=== PATIENT | male | born 1970 | race Caucasian/White ===

== ENCOUNTER 2023-02-12 11:58 | Emergency (ER) | payer MEDICAID ==
[~2023-02-12] VITALS: Ht 170.2 cm; Wt 95.5 kg
[2023-02-12] MEDS ORDERED: SODIUM CHLORIDE 0.9% 1,000 ML IV ONE (13:15)
[2023-02-12 13:23] LABS: BASOPHILS % 0.4 % (0.0-2.0); EOSINOPHILS % 3.1 % (0.0-5.0); HEMATOCRIT. 44.2 % (42.0-52.0); HEMOGLOBIN. 15.3 g/dL (14.0-18.0); LYMPHOCYTES % 19.6 % (20.0-50.0); MEAN CORPUSCULAR HEMOGLOBIN 31.9 pg (28.0-32.0); MEAN CORPUSCULAR VOLUME 92.5 fL (80.0-94.0); MONOCYTES % 5.3 % (2.0-8.0); NEUTROPHILS % 71.6 % (40.0-76.0); PLATELET 134 x1000/uL (130-400); RED BLOOD CELL COUNT 4.78 mill/uL (4.7-6.1); RED CELL DISTRIBUTION WIDTH 12.9 % (11.6-14.6)
[2023-02-12 13:29] LABS: CHLORIDE 102 mEq/L (98-107)
[2023-02-12] MEDS ORDERED: PANTOPRAZOLE SODIUM 40 MG/VIAL IV SCH (13:45)
[2023-02-12 15:05] LABS: CLARITY URINE CLEAR (CLEAR); COLOR URINE YELLOW (YELLOW); KETONES URINE NEGATIVE (NEGATIVE); LEUKOCYTE ESTERASE URINE NEGATIVE (NEGATIVE); NITRITE URINE NEGATIVE (NEGATIVE); OCCULT BLOOD URINE NEGATIVE (NEGATIVE); PROTEIN URINE NEGATIVE (NEGATIVE); SPECIFIC GRAVITY URINE 1.023 (1.005-1.030); UROBILINOGEN URINE 0.2 E.U./dL (0.2-1.0)
[2023-02-12 18:25] VITALS: BP 154/73
== END 2023-02-12 18:25 | disposition home or self-care (01) ==
LOC: ER 13:08
DX: R53.1 Weakness (principal); R42 Dizziness and giddiness; E11.9 Type 2 diabetes mellitus without complications; E78.00 Pure hypercholesterolemia, unspecified; I10 Essential (primary) hypertension; Z86.73 Personal history of transient ischemic attack (TIA), and cerebral infarction without residual deficits
CPT/HCPCS: 36415; 71045; 80053; 81003; 83880; 84484; 85025; 93005; 96361; 96374; 99285; C9113; J7030; Z7610

== ENCOUNTER 2023-05-18 10:30 | Emergency (ER) | payer MEDICAID ==
[~2023-05-18] VITALS: Ht 172.7 cm; Wt 96.0 kg
[2023-05-18 10:52] VITALS: BP 134/84; PULSE 75; RESP 18; TEMP 99; O2SAT 98
[2023-05-18 12:22] LABS: BASOPHILS % 0.6 % (0.0-2.0); EOSINOPHILS % 4.3 % (0.0-5.0); HEMATOCRIT. 43.4 % (42.0-52.0); LYMPHOCYTES % 27.9 % (20.0-50.0); MEAN CORPUSCULAR HEMOGLOBIN 31.8 pg (28.0-32.0); MEAN CORPUSCULAR HGB CONC 34.4 g/dL (31.0-37.0); MEAN CORPUSCULAR VOLUME 92.2 fL (80.0-94.0); MEAN PLATELET VOLUME 11.7 fl (7.4-10.4); MONOCYTES % 8.1 % (2.0-8.0); NEUTROPHILS % 59.1 % (40.0-76.0); PLATELET 138 x1000/uL (130-400); RED BLOOD CELL COUNT 4.71 mill/uL (4.7-6.1); RED CELL DISTRIBUTION WIDTH 13.5 % (11.6-14.6); WHITE BLOOD COUNT 5.5 x1000/uL (4.5-11.0)
[2023-05-18 12:26] LABS: CHLORIDE 105 mEq/L (98-107); INDEX HEMOLYSI 1 (1-3); INDEX ICTERIC 1 (1-4); INDEX LIPEMIC 1 (1-3); POTASSIUM 3.5 mEq/L (3.5-5.1); SODIUM 138 mEq/L (136-145)
[2023-05-18 13:08] LABS: ALANINE AMINOTRANSFERASE 32 IU/L (13-61); ASPARTATE AMINOTRANSFERASE 22 IU/L (15-37); BILIRUBIN TOTAL 0.8 mg/dL (0.1-1.0); CALCIUM 8.6 mg/dL (8.5-10.1); CARBON DIOXIDE 25 mEq/L (21-32); CREATININE 0.9 mg/dL (0.6-1.3); GLUCOSE 125 mg/dL (70-105); PROTEIN TOTAL 7.8 g/dL (6.0-8.3); TROPONIN I HIGH SENSITIVITY 7 ng/L (<78); UREA NITROGEN BLOOD 11 mg/dL (7-21)
[2023-05-18] MEDS ORDERED: ACET-2708 MT (13:12)
[2023-05-18] MEDS ORDERED: KETOROLAC 60MG/2ML VIAL IM ONE (13:15)
== END 2023-05-18 13:30 | disposition home or self-care (01) ==
LOC: ER 11:05
DX: M25.512 Pain in left shoulder (principal); E11.9 Type 2 diabetes mellitus without complications; E78.00 Pure hypercholesterolemia, unspecified; I10 Essential (primary) hypertension; Z68.32 Body mass index [BMI] 32.0-32.9, adult; Z86.73 Personal history of transient ischemic attack (TIA), and cerebral infarction without residual deficits
CPT/HCPCS: 36415; 71045; 73030; 80053; 84484; 85025; 93005; 99285

== ENCOUNTER 2023-07-30 17:35 | Emergency (ER) | payer MEDICAID ==
[~2023-07-30] VITALS: Ht 175.3 cm; Wt 99.0 kg
[~2023-07-30 17:35] MED LIST: ACET-2708 MT
[2023-07-30 17:44] VITALS: BP 149/96; PULSE 83; RESP 20; TEMP 98.3; O2SAT 96
== END 2023-07-30 21:34 | disposition left against medical advice (07) ==
LOC: ER 17:35
DX: R51.9 Headache, unspecified (principal); Z53.21 Procedure and treatment not carried out due to patient leaving prior to being seen by health care provider
CPT/HCPCS: 99281